=== PATIENT | female | born 1990 | race Caucasian/White ===

== ENCOUNTER 2019-11-21 09:28 | Outpatient (RCR) | payer BC, SELFPAY ==
[2019-11-23] MEDS: RHO(D) IMMUNE GLOBULIN 300 MCG SYRINGE IM (09:34)
== END 2020-02-19 23:59 | disposition home or self-care (01) ==
LOC: ANHLAB 09:28
PROVIDERS: Visit Provider Obstetrics & Gynecology
DX: Z29.13 Encounter for prophylactic Rho(D) immune globulin (principal); O36.0990 Maternal care for other rhesus isoimmunization, unspecified trimester, not applicable or unspecified; Z3A.00 Weeks of gestation of pregnancy not specified
CPT/HCPCS: 36415; 90384; 96372; J2790

== ENCOUNTER 2019-12-20 13:53 | Observation (INO) | payer BC, SELFPAY ==
[2019-12-20] VITALS (7 sets, daily range): BP systolic 119–131; BP diastolic 62–87; PULSE 97–103; TEMP 37.5; BMI 32.5
--- NOTE | 2019-12-20 15:36 | OBADM ---
This patient, Mariajose Cheatham, admitted to the OB room Labor/Delivery/Recovery 107 for observation. Patient/family oriented to hospital policies and general routines including ID bracelet, bed and alarms, visiting hours, pain management, procedures, bathroom and other care routines, personal items, smoking policy, room service/diet, and visiting hours. Patient/Family are encouraged to report perceived risks to care and to ask questions if they do not understand what they are told or what they should do.
--- NOTE | 2019-12-20 16:37 | PM.OBTRLD ---
OB - Triage/Final Diagnosis Visit Information Date of evaluation: 12/20/19 Reason for evaluation: threatened labor Evaluation Baseline heart rate: 135 Variability: Moderate (11-25) monitor accelerations: Present monitor decelerations: None Cervical dilation (cm): 1 Vital signs: Vital Signs - 24 hr 12/20/19 14:22 12/20/19 14:32 12/20/19 14:45 Temperature 37.5 C Pulse Rate 100 101 H Blood Pressure 119/62 125/62 12/20/19 15:00 12/20/19 15:15 12/20/19 15:30 Temperature Pulse Rate 103 H 97 97 Blood Pressure 122/75 126/81 131/87 12/20/19 15:45 Temperature Pulse Rate 100 Blood Pressure 123/79
== END 2019-12-20 16:25 | disposition home or self-care (01) ==
PROVIDERS: Admitting Provider Obstetrics & Gynecology; Visit Provider Student in an Organized Health Care Education/Training Program
DX: O47.03 False labor before 37 completed weeks of gestation, third trimester (principal); Z3A.35 35 weeks gestation of pregnancy
CPT/HCPCS: G0378; G0379

== ENCOUNTER 2020-01-02 17:09 | Observation (INO) | payer BC, SELFPAY ==
--- NOTE | 2020-01-02 21:08 | OBADM ---
This patient, Mariajose Cheatham, admitted to the OB room Labor/Delivery/Recovery 105 for observation. Patient/family oriented to hospital policies and general routines including ID bracelet, bed and alarms, visiting hours, pain management, procedures, bathroom and other care routines, personal items, smoking policy, room service/diet, and visiting hours. Patient/Family are encouraged to report perceived risks to care and to ask questions if they do not understand what they are told or what they should do.
--- NOTE | 2020-01-21 12:45 | PM.OBTRLD ---
OB - Triage/Final Diagnosis Final Diagnosis (1) False labor: Code(s): O47.9 - False labor, unspecified Status: Acute
== END 2020-01-02 20:45 | disposition home or self-care (01) ==
PROVIDERS: Admitting Provider Obstetrics & Gynecology; Visit Provider Obstetrics & Gynecology
DX: O47.1 False labor at or after 37 completed weeks of gestation (principal); Z3A.38 38 weeks gestation of pregnancy
CPT/HCPCS: G0378; G0379

== ENCOUNTER 2020-01-11 05:55 | Inpatient (IN) | payer BC, SELFPAY ==
[2020-01-11] VITALS (75 sets, daily range): BP systolic 74–129; BP diastolic 20–88; PULSE 70–220; RESP 16–18; TEMP 36.6–37.2; O2SAT 79–100; BMI 34.0
--- NOTE | 2020-01-11 06:43 | LDADM ---
This patient, Mariajose Cheatham, was admitted to Labor/Delivery/Recovery 103 on 01/11/20 at 05:55. Plans for labor, pain management and were discussed with patient. Patient/family oriented to hospital policies and general routines including ID bracelet, bed and alarms, visiting hours, pain management, procedures, bathroom and other care routines, personal items, smoking policy, room service/diet and guest tray routines, infant security routines, and visiting hours. Patient/Family are encouraged to report perceived risks to care and to ask questions if they do not understand what they are told or what they should do. See OBIX for further documentation.
[2020-01-11 07:03] LABS: Basophils Absolute Auto 0.1 K/mm3 (0.0-0.1); Basophils Percent Auto 0.6 % (0.2-1.2); Eosinophils Absolute Auto 0.4 K/mm3 (0-0.3); Eosinophils Percent Auto 3.4 % (0-4.4); Hematocrit 31.3 % (37.0-47.0); Hemoglobin 10.2 g/dL (12.0-15.0); Immature Granulocyte Percent A 0.9 % (0-0.5); Lymphocytes Absolute Auto 2.01 K/mm3 (0.9-3.2); Lymphocytes Percent Auto 18.5 % (18.3-44.2); Mean Corpuscular HGB Conc 32.6 g/dl (32-36); Mean Corpuscular Hemoglobin 25.6 pg (26-34); Mean Corpuscular Volume 78.4 fl (80-100); Mean Platelet Volume 8.1 fl (7.4-10.4); Monocytes Absolute Auto 0.8 K/mm3 (0.1-0.6); Monocytes Percent Auto 7.7 % (2.6-8.5); Neutrophils Absolute Auto 7.5 K/mm3 (1.3-6.7); Neutrophils Percent Auto 68.9 % (45.5-73.1); Platelet Count Result 199 k/mm3 (150-375); Red Blood Count 3.99 M/mm3 (4.2-5.4); Red Cell Distribution Width 13.3 % (11.5-14.5); White Blood Count 10.9 K/mm3 (4.5-10.0)
--- NOTE | 2020-01-11 07:12 | PM.IMHP ---
H&P: HPI History of Present Illness Chief complaint: induction of labor Narrative: Mariajose Cheatham is a 29 year old female She 3 P1 011 last menstrual period was 04/08/2019, EDC is 01/18/2020 presents at 39 weeks gestation for induction of labor. She has a 8 week ultrasound confirming dates. Her cervix is favorable risks and benefits reviewed. Review of Systems Review of Systems: All systems reviewed & are unremarkable except as noted in HPI and below PMFSH Family History Family History Other No pertinent family history Social History Social History Smoking status: Former smoker Second hand tobacco smoke exposure: No Substance use: never Gender identity (if verbalized by the patient): Female Spiritual care concerns: No Meds Home Medications and Allergies Allergies Allergy/AdvReac Type Severity Reaction Status Date / Time venom-honey bee Allergy Severe Anaphylactic Verified 07/02/16 14:36 Shock amoxicillin Allergy Intermediate rash Verified 07/02/16 14:36 Vital Signs Vital Signs - 24 hr 01/11/20 06:20 Pulse Rate 90 Blood Pressure 129/80 Exam Const: General: no acute distress Eyes: General: appearance normal, both eyes and all related structures Neck: Neck: supple and no JVD Thyroid: thyroid normal Resp: Effort & Inspection: normal respiratory effort Auscultation: clear to auscultation bilaterally Cardio: Rate: regular rate Rhythm: regular rhythm GI: Inspection: non-distended GI Palp: Yes Soft to palpation, No Tenderness to palpation present (GI) and No Guarding due to palpation present (GI) Auscultation: normal bowel sounds : General: Yes bladder normal to palpation External Female Exam: normal external appearance Speculum Exam - Vagina: normal vaginal discharge and No vaginal bleeding Speculum Exam - Cervix: nontender Bimanual exam- vagina & uterus: bladder normal to palpation and No Cervical tenderness present OB/external & speculum: No vaginal bleeding Skin: General skin exam: no rashes or lesions noted Extrem: General: normal to inspection and no edema Psych: Mental Status: mental status grossly normal Affect: normal affect H&P: Results Labs Labs: Short CBC 01/11/20 Range/Units 06:50 WBC 10.9 H (4.5-10.0) K/mm3 Hgb 10.2 L (12.0-15.0) g/dL Hct 31.3 L (37.0-47.0) % Plt Count 199 (150-375) k/mm3 Assessment and Plan Additional Plan Impression: Term with favorable cervix Plan: Medical induction of labor. Spontaneous vaginal delivery is expected. She has an epidural candidate
--- NOTE | 2020-01-11 07:14 | WPDOBADMIT ---
Obstetrics - Admit Note Admission Note: record reviewed. No pertinent additions to the history and/or any subsequent changes in the physical findings that are not consistent with the expected course of the were found. Additions to the history and/or subsequent changes in the physical findings follow. None. cx 3-/-1 arom clear fhts reassuring
[2020-01-11] MEDS: LACTATED RINGERS 1,000 ML 125 ML IV CONT ×3 (07:19→10:34)
--- NOTE | 2020-01-11 07:43 | P.PNAN_ITS ---
Anes - Eval Pre Procedure Procedure: Labor epidural Date/Time: 01/11/20 07:43 Surgeon: Jordan Olson M.D. Preop Diagnosis: pain during labor Pre Op Diagnosis: induction of labor Patient Data Age: 29 Gender: F Height: 1.6 m Weight: 87.2 kg Last Vital Signs Pulse 87 01/11/20 07:31 BP 115/63 01/11/20 07:31 Allergies Allergy/AdvReac Type Severity Reaction Status Date / Time venom-honey bee Allergy Severe Anaphylactic Verified 07/02/16 14:36 Shock amoxicillin Allergy Intermediate rash Verified 07/02/16 14:36 Laboratory Tests 01/11/20 01/11/20 06:50 06:50 WBC 10.9 K/mm3 H K/mm3 (4.5-10.0) RBC 3.99 M/mm3 L M/mm3 (4.2-5.4) Hgb 10.2 g/dL L g/dL (12.0-15.0) Hct 31.3 % L % (37.0-47.0) MCV 78.4 fl L fl (80-100) MCH 25.6 pg L pg (26-34) MCHC 32.6 g/dl g/dl (32-36) RDW 13.3 % % (11.5-14.5) Plt Count 199 k/mm3 k/mm3 (150-375) MPV 8.1 fl fl (7.4-10.4) Immature Gran % (Auto) 0.9 % H % (0-0.5) Neut % (Auto) 68.9 % % (45.5-73.1) Lymph % (Auto) 18.5 % % (18.3-44.2) [place] % (Auto) 7.7 % % (2.6-8.5) Eos % (Auto) 3.4 % % (0-4.4) Baso % (Auto) 0.6 % % (0.2-1.2) Lymph # (Auto) 2.01 K/mm3 K/mm3 (0.9-3.2) [place] # (Auto) 0.8 K/mm3 H K/mm3 (0.1-0.6) Eos # (Auto) 0.4 K/mm3 H K/mm3 (0-0.3) Baso # (Auto) 0.1 K/mm3 K/mm3 (0.0-0.1) Abs Immat Gran (auto) 0.10 K/mm3 H K/mm3 (0.00-0.031) Absolute Neuts (auto) 7.5 K/mm3 H K/mm3 (1.3-6.7) Absolute Nucleated RBC 0.0 K/mm3 K/mm3 (0.0-0.012) Nucleated RBC % 0.0 % % (0.0-0.2) RPR Pending Patient hx anesthesia problems: none Family hx anesthesia problems: none [facility] Family History Family History Other No pertinent family history Social History Social History Smoking status: Former smoker Second hand tobacco smoke exposure: No Substance use: never Gender identity (if verbalized by the patient): Female Spiritual care concerns: No Exam Day of Procedure 01/11/20 07:43
--- NOTE | 2020-01-11 10:33 | PM.OBPNVD ---
OB - PN: Subj Subjective Date/time seen: 01/11/20 10:33 Interval history: cx 6 by rn exam epidural in fhts reassuring OB - PN: Obj Data Labs CBC & Chem 7: 01/11/20 06:50 Labs: Laboratory Results - last 24 hr 01/11/20 01/11/20 06:50 06:50 WBC 10.9 H RBC 3.99 L Hgb 10.2 L Hct 31.3 L MCV 78.4 L MCH 25.6 L MCHC 32.6 RDW 13.3 Plt Count 199 MPV 8.1 Immature Gran % (Auto) 0.9 H Neut % (Auto) 68.9 Lymph % (Auto) 18.5 [place] % (Auto) 7.7 Eos % (Auto) 3.4 Baso % (Auto) 0.6 Lymph # (Auto) 2.01 [place] # (Auto) 0.8 H Eos # (Auto) 0.4 H Baso # (Auto) 0.1 Abs Immat Gran (auto) 0.10 H Absolute Neuts (auto) 7.5 H Absolute Nucleated RBC 0.0 Nucleated RBC % 0.0 Blood Type A Negative Antibody Screen Positive OB - PN A/P Time Spent With Patient Time: Total time spent is greater than 50% in coordination of care (as documented) at patient's floor/unit and/or counseling patient:
--- NOTE | 2020-01-11 11:05 | PM.OBPRVD ---
OB - Delivery Note Procedure Delivery date: 01/11/20 Procedure: mil/ Intrapartal events: None Induction method: AROM Delivery augmentation: pitocin Delivery monitor: external FHT Route of delivery: Episiotomy description: None Laceration description: Perineal - 2nd Degree Delivery repair: vicryl Specimen: No Estimated blood loss (mL): 127 Anesthesia type: Epidural Disposition: floor Baby Date of : 01/11/20 Time of : 10:50 Weeks of gestation at delivery: 39 Infant gender: Female Weight (pounds): 7 Weight (ounces): 0 presentation: vertex position: Right Occiput Anterior Placenta delivery description: Spontaneous cord vessel description: 3 Vessels score one minute: 8 score five minutes: 9
--- NOTE | 2020-01-11 17:27 | OBPPTRN ---
Addendum entered by Tasha Corcoran RN 01/11/20 18:49: Pt admitted to floor at 1332 Original Note: Patient transferred to post room #281 per wheelchair. Support person present. Oriented to unit, room, information board, rooming in, admission packet and security measures. Patient verbalizes understanding.
[2020-01-11] MEDS: IBUPROFEN 600 MG TABLET PO (19:09)
[2020-01-11] MEDS: WITCH HAZEL 40 PADS 1 PAD TOPICAL (19:09)
[2020-01-11] MEDS: BENZOCAINE 20% AER SPR (*SP) 56 GM CAN 1 SPRAY TOPICAL (19:09)
[2020-01-12 05:58] LABS: Hematocrit 29.2 % (37.0-47.0); Hemoglobin 9.3 g/dL (12.0-15.0)
--- NOTE | 2020-01-12 07:42 | WPDANLDPN2 ---
Anes-Prog Note L&D Date/Time: 01/12/20 07:42 Comfortable throughout: labor and delivery Epidural/Spinal procedure site: clean & non-tender Neuro status: Neuro function grossly intact. Cardiovascular status: normal Respiratory status: normal Airway patency: baseline Mental status: baseline Vital Signs: Last Vital Signs Temp 37.2 C 01/11/20 19:00 Pulse 83 01/11/20 19:00 Resp 18 01/11/20 19:00 BP 115/82 01/11/20 19:00 Pulse Ox 100 01/11/20 19:00 I/O: Intake & Output 01/11/20 01/11/20 01/12/20 15:59 23:59 07:59 Intake Total 69996.33 Output Total 325 Balance 63829.33 Post-procedural complaints: none Patient feedback: Patient satisfied with anesthetic care.
[2020-01-12] MEDS: POLYSACCHARIDE IRON COMPLEX 150 MG CAPSULE PO ×2 (07:58→16:54)
[2020-01-12] MEDS: DOCUSATE SODIUM 100 MG CAPSULE PO ×2 (07:58→16:54)
[2020-01-12 08:00] VITALS: BP 120/70; PULSE 69; RESP 18; TEMP 36.2
--- NOTE | 2020-01-12 08:06 | PM.OBPNVD ---
OB - PN: Subj Subjective Date/time seen: 01/12/20 08:06 Patient comments: no complaints, pain well controlled and tolerating diet [place] feeding status: exclusively breast feeding Narrative: patient doing well this AM. No complaints. Pain is well controlled. She reports minimal bleeding. She is ambulating and voiding without difficulty. She is tolerating PO. She denies N/V, fever, chills. OB - PN: Obj Data Labs CBC & Chem 7: 01/12/20 04:45 Labs: Laboratory Results - last 24 hr 01/11/20 01/12/20 01/12/20 06:50 04:45 04:45 Hgb 9.3 L Hct 29.2 L Blood Type A Negative A Negative Antibody Screen Positive Antibody Identification Passive Due to RH Imm Glob Antigen Identification Cancelled RUSSEL, IgG Interpret Negative RUSSEL, Poly Interpret Negative RUSSEL, Complement Interp Not Performed OB - PN A/P Plan day: 1 Plan: routine care Comments: patient doing well H/H stable continue routine care Time Spent With Patient Time: Total time spent is greater than 50% in coordination of care (as documented) at patient's floor/unit and/or counseling patient: Time with patient: less than 15 minutes Review of Systems Review of Systems: All systems reviewed & are unremarkable except as noted in HPI and below Exam Const: General: comfortable and no acute distress Resp: Effort & Inspection: normal respiratory effort Cardio: Rate: regular rate GI: GI Palp: Yes Soft to palpation and No Tenderness to palpation present (GI) Auscultation: normal bowel sounds Other: fundus firm and below umbilicus. Psych: Affect: normal affect
[2020-01-12] MEDS: BENZOCAINE 20% AER SPR (*SP) 56 GM CAN 1 SPRAY TOPICAL (16:54)
[2020-01-12] MEDS: WITCH HAZEL 40 PADS 1 PAD TOPICAL (16:54)
[2020-01-12] MEDS: RHO(D) IMMUNE GLOBULIN 300 MCG SYRINGE IM (16:54)
[2020-01-12 18:30] VITALS: BP 129/67; PULSE 72; RESP 16; TEMP 37.3; O2SAT 99
[2020-01-12] MEDS: IBUPROFEN 600 MG TABLET PO (20:07)
--- NOTE | 2020-01-12 20:30 | PC.NURSE ---
Patient viewed the discharge video Mother & Baby Care, The First Two Weeks . Patient was given the opportunity and encouraged to ask questions. Patient verbalized understanding of information shared and has been given the mother/baby guide for home reference.
--- NOTE | 2020-01-13 07:30 | PC.NURSE ---
PT introductions made and plan of care discussed per post , pain management, bottle feeding, daily care activities and pending discharge to home. PT verbalized understanding of such care.
--- NOTE | 2020-01-13 07:40 | PM.OBDSVD ---
OB - DS: Summary OB Procedures : None OB Procedures Intrapartum: Spontaneous Vag Delivery OB Procedures: : None Status at Discharge Functional status at discharge: independent ambulation Overall status at discharge: patient is back to baseline Time Spent with Patient Time attestation: Total time spent providing and/or coordinating discharge services: Time spent: Less than 30 minutes Exam Const: General: comfortable and no acute distress Resp: Effort & Inspection: normal respiratory effort Auscultation: clear to auscultation bilaterally Cardio: Rate: regular rate GI: GI Palp: Yes Soft to palpation Auscultation: normal bowel sounds Other: Fundus firm below umbilicus Psych: Appearance: grossly normal Mental Status: mental status grossly normal Affect: normal affect DS: Data Data Completed and Pending Labs on day of discharge: Labs from last 24 hours 01/12/20 04:45 Blood Type A Negative Antibody Screen Negative Screen Negative Baby's Blood Type A pos Baby's RUSSEL Negative Doses of RhIg Required 1 Discharge Plan Discharge Attending physician on discharge: Jordan Li Discharging Clinician: Jordan Li Patient Disposition: Home, Self-Care Activity: may shower, no straining, may drive after 2 weeks and pelvic rest Diet: heart healthy Wound Care Instructions: follow printed instructions Patient Instructions: Antibiotic Form Stand Alone Forms: General Discharge Information Follow-up/Referrals: Jordan Li MD [Physician] - Discharge Medications: New acetaminophen [Mapap (acetaminophen)] 325 mg Tablet 650 mg PO Q6H PRN (Reason: Mild Pain (1-3) Or Headache) Qty: 30 RF: 0 ibuprofen 600 mg Tablet 600 mg PO Q6H PRN (Reason: Cramping) Qty: 30 RF: 0 Vjo-I-Oithum Cream 1 applic topical PRN PRN (Reason: Sore Nipples) Qty: 1 RF: 0 Dermoplast (with menthol) 20-0.5 % Aerosol 1 spray topical PRN PRN (Reason: Perineal Discomfort) Qty: 1 RF: 0 Date of admission: 01/11/20 05:55 Primary Care Provider: UNKNOWN,DOCTOR Admitting Provider: Jordan Li Attending physician on admission: Jordan Li
[2020-01-13 09:30] VITALS: BP 132/86; PULSE 74; RESP 18; TEMP 36.5; O2SAT 99
--- NOTE | 2020-01-13 09:30 | PC.NURSE ---
PT received discharge instructions per protocol and verbalized understanding of such instructions.
[2020-01-13] MEDS: POLYSACCHARIDE IRON COMPLEX 150 MG CAPSULE PO (10:26)
[2020-01-13] MEDS: DOCUSATE SODIUM 100 MG CAPSULE PO (10:28)
[2020-01-13] MEDS: IBUPROFEN 600 MG TABLET PO (10:28)
[2020-01-13] MEDS: TETANUS,DIPHTHERIA,AC PERTUSSIS ADULT 0.5 ML (ADACEL) IM (10:39)
--- NOTE | 2020-01-13 11:10 | PC.NURSE ---
PT discharged to home ambulatory accompanied by spouse and and taken to waiting car. Follow up appts confirmed
[2020-01-14 09:40] LABS: Rapid Plasma Reagin Non-Reactive (NonReactive)
[2020-01-14 09:49] VITALS: BP 125/77; PULSE 77; RESP 20; TEMP 37
== END 2020-01-13 11:10 | disposition home or self-care (01) | DRG 807 ==
LOC: ANHLDR 11:07 → ANHOB2 01-13 07:46 → ANHLDR 01-14 14:04 → ANHOB2 01-14 14:04
PROVIDERS: Admitting Provider Obstetrics & Gynecology; Visit Provider Student in an Organized Health Care Education/Training Program
DX: O70.1 Second degree perineal laceration during delivery (principal); Z37.0 Single live birth; Z3A.39 39 weeks gestation of pregnancy; Z87.891 Personal history of nicotine dependence
CPT/HCPCS: 36415; 85014; 85018; 85025; 86592; 86850; 86880; 86900; 86901; 86902; 90384; 90715; A9270; J2590; J2790; J2795; J7120

== ENCOUNTER → 2021-02-06 00:49 | Outpatient (CLI) | payer BC, SELFPAY ==
[2021-02-06 19:49] LABS: SARS-CoV-2 RNA PCR Negative
== END ==
PROVIDERS: PCP Family Medicine Sports Medicine; Visit Provider Obstetrics & Gynecology
DX: Z01.812 Encounter for preprocedural laboratory examination (principal); Z20.822 Contact with and (suspected) exposure to COVID-19
CPT/HCPCS: C9803; U0003; U0005

== ENCOUNTER 2021-02-09 02:12 | Day surgery (SDC) | payer BC, SELFPAY ==
[2021-01-27 08:58] VITALS: BMI 26.2
--- NOTE | 2021-02-03 13:52 | PM.IMHP ---
H&P: HPI History of Present Illness Date/Time: 02/03/21 13:52 this is a 30-year-old 3 para 2 desires permanent sterilization. Alternatives including but not exclusive of pills patches injections inserts were offered. She understands is to be permanent and irreversible procedure. Risks and benefits of the procedure reviewed in great detail. She read the [employer] handout entitled Chief Complaint: sterilization Review of Systems Review of Systems: All systems reviewed & are unremarkable except as noted in HPI and below PMFSH Family History Family History Other No pertinent family history Social History Social History Smoking status: Never smoker Second hand tobacco smoke exposure: No Alcohol intake: never Substance use: never Substance use type: does not use Gender identity (if verbalized by the patient): Female Spiritual care concerns: No Meds Home Medications and Allergies Home Medications Medication Instructions Recorded Confirmed Type No Home Medications 01/27/21 01/27/21 History Allergies Allergy/AdvReac Type Severity Reaction Status Date / Time venom-honey bee Allergy Severe Anaphylactic Verified 01/27/21 08:57 Shock amoxicillin Allergy Intermediate rash Verified 01/27/21 08:57 Exam Const: General: no acute distress Eyes: General: appearance normal, both eyes and all related structures Neck: Neck: supple and no JVD Thyroid: thyroid normal Resp: Effort & Inspection: normal respiratory effort Auscultation: clear to auscultation bilaterally Cardio: Rate: regular rate Rhythm: regular rhythm GI: Inspection: non-distended GI Palp: Yes Soft to palpation, No Tenderness to palpation present (GI) and No Guarding due to palpation present (GI) Auscultation: normal bowel sounds : General: Yes bladder normal to palpation External Female Exam: normal external appearance Speculum Exam - Vagina: normal vaginal discharge and No vaginal bleeding Speculum Exam - Cervix: nontender Bimanual exam- vagina & uterus: bladder normal to palpation and No Cervical tenderness present OB/external & speculum: No vaginal bleeding Skin: General skin exam: no rashes or lesions noted Extrem: General: normal to inspection and no edema Psych: Mental Status: mental status grossly normal Affect: normal affect Assessment and Plan Additional Plan impression: Multiparous patient who desires permanent sterilization Plan: Laparoscopic bilateral tubal ligation
[2021-02-09] VITALS (9 sets, daily range): BP systolic 103–124; BP diastolic 53–67; PULSE 53–72; RESP 12–20; TEMP 36; O2SAT 96–100
--- NOTE | 2021-02-09 06:05 | WPDHPUPDATE1 ---
History and Physical Update Update Date/Time: 02/09/21 06:05 History and Physical has been reviewed, including an updated exam of the patient. There are NO changes in the patient's condition. Risks, benefits, and alternatives have been discussed and questions answered. Patient agrees to proceed with procedure.
--- NOTE | 2021-02-09 07:19 | WPDANESEPPF ---
Anes - Initial Pre Proc Eval Procedure: Operation Date: 02/09/21 08:15 Proposed Procedures p Laparoscopic Bilateral Tubal Sterilization wtih Fallopian Rings - Jordan Li MD Date/Time: 02/09/21 07:19 Surgeon: Jordan Li MD Pre Op Diagnosis: desires sterilization Patient Data Age: 30 Gender: F Height: 5 ft 4 in Weight: 69.4 kg Allergies Allergy/AdvReac Type Severity Reaction Status Date / Time venom-honey bee Allergy Severe Anaphylactic Verified 01/27/21 08:57 Shock amoxicillin Allergy Intermediate rash Verified 01/27/21 08:57 Home Medications Medication Instructions Recorded Confirmed Type hydrocodone-acetaminophen 1 tablet PO Q6H PRN #20 tablet 02/09/21 Rx Patient hx anesthesia problems: none Family hx anesthesia problems: none PMFSH Family History Family History Other No pertinent family history Social History Social History Smoking status: Never smoker Second hand tobacco smoke exposure: No Alcohol intake: never Substance use: never Substance use type: does not use Living arrangements: with family Gender identity (if verbalized by the patient): Female Spiritual care concerns: No Anes - Eval Final PreProcedure Day of Procedure 02/09/21 07:19 Patient weight: overweight Heart: regular rate and rhythm Lungs: clear to auscultation Airway: Mallampati scale class II Neurological: alert and oriented Last oral intake: >/= 8 hours ASA classification: II Emergent: no Anesthetic plan: proceed Anesthesia type and monitoring: general ETT and standard monitoring Informed Consent: The patient's anesthetic plan and its attendant risks and benefits were discussed with the patient/family/POA. Questions were solicited and answers provided to the satisfaction of the patient/family/POA.
[2021-02-09] MEDS: KETOROLAC 15 MG/ML VIAL (*BKC) IV PUSH (07:33)
[2021-02-09] MEDS: ACETAMINOPHEN 500 MG TABLET 1000 MG PO (07:33)
[2021-02-09] MEDS: LACTATED RINGERS 1,000 ML 30 ML IV CONT ×2 (07:45→08:48)
[2021-02-09] MEDS: SCOPOLAMINE 1.5 MG PATCH TRANSDERM (08:01)
--- NOTE | 2021-02-09 08:32 | P.OP_ITS ---
Procedure Note - Detailed Date of procedure: 02/09/21 Pre-op diagnosis: desires sterilization Surgeon: Jordan Li MD Postop diagnosis: Desires permanent sterilization Procedure: Laparoscopic bilateral tubal ligation via silastic rings EBL: 5cc Findings: [id number] of fluid in the cul-de-sac normal-appearing ovaries tubes uterus Anesthesia: General endotracheal Complications: None Description of procedure: The patient was prepped draped in the sterile fashion placed dorsal lithotomy position. Under excellent general endotracheal anesthesia weighted speculum placed post formed vagina. Anterior lip of the cervix grasped with a single-tooth tenaculum. Diaz's cannula inserted attached to the cervix and attached to the single-tooth to be used for later for uterine manipulation. Bladder emptied of clear urine in the weighted speculum removed. Gloves were changed. An infraumbilical incision made. The Veress needle passed in the abdomen. Abdomen filled with CO2 gas in31tdTc. The 8mm trocar advanced under direct visualization assuring no injury. [id number] of se rosanguineous fluid was seen in the cul-de-sac and this was suction removed. Left fallopian tube was grasped in a good knuckle of tube formed with excellent blanching in like fashion the right fallopian tube was grasped with grasper and the ring placed in the midportion and blanching was seen photo documentation was undertaken. No other abnormalities was were seen. The instruments removed. The gas removed from the abdomen. The trocars removed and the incisions closed with 4 Monocryl. All sponge, needle, instrument counts were correct. There were no immediate complications
[2021-02-09] MEDS: fentaNYL CITRATE INJ (*CRX) 100 MCG/2 ML VIAL 25 MCG IV PUSH ×8 (09:01→09:28)
[2021-02-09] MEDS: oxyCODONE HCL (*CRX) 5 MG TAB IR PO (10:18)
== END 2021-02-09 10:55 | disposition home or self-care (01) ==
PROVIDERS: PCP Family Medicine Sports Medicine; Visit Provider Obstetrics & Gynecology
PROC: (CPT 58671; principal; 2021-02-09 08:15)
DX: Z30.2 Encounter for sterilization (principal)
CPT/HCPCS: 58671; A4264; A9270; J0330; J1100; J1885; J2250; J2405; J2704; J3010; J7120